=== PATIENT | female | born 1970 | race African-American/Black ===

== ENCOUNTER 2017-10-13 15:11 | Emergency (ER) | payer OTHER, BC ==
[2017-10-13 15:23] VITALS: BP 146/86; PULSE 89; TEMP 98.7; BMI 25.7
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
== END 2017-10-13 15:50 | disposition home or self-care (01) ==
LOC: FER 15:11
DX: S13.4XXA Sprain of ligaments of cervical spine, initial encounter (principal); V49.9XXA Car occupant (driver) (passenger) injured in unspecified traffic accident, initial encounter; Y93.89 Activity, other specified; Y92.410 Unspecified street and highway as the place of occurrence of the external cause
CPT/HCPCS: 99281-25